=== PATIENT | female | born 1995 ===

== ENCOUNTER 2019-02-17 05:22 | Inpatient (IN) ==
[2019-02-17] MEDS ORDERED: OXYTOCIN 30 UNITS/500 ML BAG IV PRN ×3 (12:32→23:33)
--- NOTE | 2019-02-17 12:39 | History & Physical Report ---
Date of Service February 17, 2019 Assessment & Plan (1) 40 weeks gestation of : Admit to L&D for labor. History of Present Illness Chief Complaint: labor Primary Care Provider: NO PCP 23yo @ 40 6 presented overnight for previous physician in spontaneous labor. She was cynthia regularly, no vaginal bleeding or leaking. + movement. uncomplicated. 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 marital status: Current Living Situation: Spouse Other Information That Helps Us Care for You: No Feels Safe at Home: Yes Safety Concerns: Feels Safe At This Time and Afraid for Self Smoking Status: Never smoker Hx Alcohol Use: No Hx Substance Use: No Review of Systems All systems reviewed & are unremarkable except as noted in HPI & below Physical Exam Physical Exam: Gen: AAOx3 NAD CV: RRR L: CTAB Abd: soft, NTTP, gravid Ext: no edema SVE on arrival per Dr Nowak: /-2 FHT Cat 1 Cobb Q 2-3 Results & Data Vital Signs (Past 12 Hours) Vital Signs Temp Pulse Resp BP 02/17/19 11:07 37.1 C 71 18 125/77 02/17/19 07:20 37.0 C 16 02/17/19 07:14 88 132/89 02/17/19 05:54 36.8 C 100 H 18 117/76 02/17/19 05:34 100 H 117/76
--- NOTE | 2019-02-17 12:50 | Obstetrical Progress Note ---
Date of Service February 17, 2019 Subjective Feeling contractions. FHT Cat 1 Sudley Q 2-5 min SVE 2-3/90/-2 Will start pitocin. Discussed with patient, she is agreeable. OK for epidural when she desires. Results & Data Vital Signs (Past 12 Hours) Vital Signs Temp Pulse Resp BP 02/17/19 11:07 37.1 C 71 18 125/77 02/17/19 07:20 37.0 C 16 02/17/19 07:14 88 132/89 02/17/19 05:54 36.8 C 100 H 18 117/76 02/17/19 05:34 100 H 117/76
[2019-02-17 13:01] LABS: Hematocrit (blood only) 33.6 % (37-47); Hemoglobin 10.9 g/dL (12.0-16.0); Mean Corpuscular Volume 85.7 fL (80-100); Mean Platelet Volume 11.1 fL (7.4-10.4); Platelet Count 143 K/uL (130-400); RDW Coefficient of Variation 14.6 % (11.5-14.5); RDW Standard Deviation 45.5 fL (36.4-46.3); Red Blood Count 3.92 M/uL (4.2-5.4); White Blood Count 11.69 K/uL (4.8-10.8)
[2019-02-17 13:02] LABS: Mean Corpuscular Hgb Conc 32.4 g/dL (32-36)
--- NOTE | 2019-02-17 13:04 | Obstetrical Progress Note ---
Date of Service February 17, 2019 Subjective Rates ctx 8-9/10, does not desire epidural. FHT Cat 1 Pierz Q 2-6 min SVE 6-7/80/-1 Discussed with patient that pitocin would likely help ctx become more regular - she is agreeable. Pit ordered. Results & Data Vital Signs (Past 12 Hours) Vital Signs Temp Pulse Resp BP 02/17/19 11:07 37.1 C 71 18 125/77 02/17/19 07:20 37.0 C 16 02/17/19 07:14 88 132/89 02/17/19 05:54 36.8 C 100 H 18 117/76 02/17/19 05:34 100 H 117/76
[2019-02-17] MEDS: LACTATED RINGER'S 1,000 ML IV PRN ×3 (13:21→21:16)
--- NOTE | 2019-02-17 20:52 | Anesthesiology Consultation ---
Date of Service February 17, 2019 Assessment & Plan (1) Encounter for pre-operative examination: Chart Review Chart Review: Patient NOT seen in Pre Admission Testing and Acceptable Risk for Labor Epidural Consults Requested none ASA ASA2 Proposed Anesthesia Anesthesia Type: Labor Epidural Risk / Benefits Reviewed With: PT / POA / Parent / Guardian, Accepts Plan and Informed Consent Obtained History Height/Weight Weight: 70.307 kg Allergies Allergy/AdvReac Type Severity Reaction Status Date / Time No Known Allergies Allergy Unverified 02/17/19 05:45 Medications Home Medications Medication Instructions Recorded Confirmed Last Taken 1 tab PO DAILY 02/17/19 02/17/19 02/17/19 03:00 Active Medications Generic Name Dose Route Start Last Admin Trade Name Freq PRN Reason Stop Dose Admin Lactated Ringer's 1,000 mls @ 125 mls/hr 02/17/19 12:32 02/17/19 21:16 Lr IV 02/19/19 12:31 999 mls/hr .Q8H PRN Administration L&D Protocol Protocol Oxytocin 30 units in 500 mls @ 7 mls/hr 02/17/19 12:32 02/17/19 19:12 Pitocin IV 02/19/19 12:31 0.42 units/hr .Q24H PRN 7 mls/hr Labor Induction/Augmentation Titration Protocol 0.42 UNITS/HR Social History Smoking Status: Never smoker Hx Alcohol Use: No Hx Substance Use: No Review of Systems Patient denies history of abnormal bleeding or bleeding disorder. Patient denies active use of anticoagulants other than low dose aspirin. Patient denies numbness, tingling or weakness in lower extremities. Physical Exam Vital Signs Last Vital Signs Temp 36.8 C 02/17/19 20:50 Pulse 91 H 02/17/19 21:31 Resp 20 02/17/19 21:24 BP 124/71 02/17/19 21:31 Pulse Ox 100 02/17/19 21:28 ENMT Mouth: no TMJ abnormality and oral opening not small Neck normal visual inspection; neck extension not limited Respiratory normal respiratory effort Auscultation: lungs clear to auscultation bilaterally Cardiovascular Rate/Rhythm: regular rate and regular rhythm Heart Sounds: no murmur Neurologic moves all extremities Psychiatric Orientation: alert and oriented x 3 Testing Laboratory Results 02/17/19 12:51
[2019-02-17] MEDS ORDERED: fentaNYL 2MCG/ML ROPIV 1.25MG/ML 100 ML BAG EPI ONE (21:28)
[2019-02-17] MEDS ORDERED: BUPIVACAINE 0.25% 30 ML VIAL ONE (21:28)
[2019-02-17] MEDS ORDERED: ePHEDrine sulfate 50 MG/ML AMP ONE (21:28)
[2019-02-17] MEDS ORDERED: fentaNYL citrate 100 MCG/2 ML VIAL ONE (21:28)
[2019-02-17] MEDS ORDERED: NALOXONE HCL 0.4 MG/1 ML VIAL/CARP IV PRN (23:03)
[2019-02-17] MEDS ORDERED: fentaNYL 2MCG/ML ROPIV 1.25MG/ML 100 ML BAG EPI PRN (23:03)
[2019-02-17] MEDS ORDERED: NALOXONE HCL 1 MG in SODIUM CHLORIDE 0.9% 1000ML 1,000 ML IV PRN (23:03)
[2019-02-17] MEDS ORDERED: DiphenhydrAMINE HCL 50 MG/ML VIAL IV PRN (23:03)
[2019-02-17] MEDS ORDERED: NALBUPHINE HCL INJ 10 MG/ML AMP IV PRN (23:03)
[2019-02-17] MEDS ORDERED: ONDANSETRON INJ 2 MG/ML 2 ML VIAL IV PRN (23:03)
[2019-02-17] MEDS ORDERED: ePHEDrine sulfate 50 MG/ML AMP IV PRN (23:03)
--- NOTE | 2019-02-17 23:04 | Delivery Summary ---
Vaginal Delivery Summary Date of Service February 17, 2019 Patient admitted by my partner Dr. Nowak for labor assessment she was 6 cm in the morning of her shift change the patient wished to be unmedicated and wished minimal intervention she did progress to 9 cm at that stage we did offer an AROM and she agreed she stayed there at 9 cm for a number of hours and she was offered an epidural and she agreed to this after that she developed a lower station at +2 cm in fluid balance able to push for a short period of time delivering a baby in occiput anterior there was some thin meconium mouth and then nares were suctioned no nuchal cord gentle traction no excessive force live vigorous male infant cord clamped and cut cord gases obtained cord blood obtained placenta removed with gentle traction IV Pitocin started small first- degree tear repaired with 3-0 Vicryl sponge and instrument counts correct estimate of blood loss 150 mL
--- NOTE | 2019-02-17 23:16 | Anesthesia Procedure Note ---
Date of Service February 17, 2019 Anesthesia Post Epidural Note Vital Signs Vital Signs: Temp Pulse Resp BP Pulse Ox 36.9 C 112 H 16 104/67 100 02/17/19 22:25 02/17/19 23:13 02/17/19 23:01 02/17/19 23:01 02/17/19 23:13 Pain Intensity Abdomen: Pain Intensity: 0 Notes Mental Status: alert / awake / arousable and participated in evaluation Nausea / Vomiting: adequately controlled Pain: adequately controlled Airway Patency, RR, SpO2: stable & adequate BP & HR: stable & adequate Hydration State: stable & adequate Neuraxial Anesthesia: was administered and sensory block is resolving Anesthetic Complications: no major complications apparent and Pt Satisfied with anesthetic care Epidural: Removed without complications and With tip intact
[2019-02-17] MEDS ORDERED: HYDROCORTISONE ACETATE 25 MG SUPP PR PRN (23:33)
[2019-02-17] MEDS ORDERED: OXYCODONE/ACETAMINOPHEN 5mg/325mg TAB PO PRN (23:33)
[2019-02-17] MEDS ORDERED: BISACODYL 10 MG SUPP PR PRN (23:33)
[2019-02-17] MEDS ORDERED: DIPHTHERIA/TETANUS/PERTUSSIS 0.5 ML SYR/VIAL IM ONE (23:33)
[2019-02-17] MEDS ORDERED: IBUPROFEN 600 MG TAB PO PRN (23:33)
[2019-02-17] MEDS ORDERED: BENZOCAINE 20% AER SPR 82.5 GM CAN EXT PRN (23:33)
[2019-02-17] MEDS ORDERED: SUPERCREAM 0.870% 15 GM JAR EXT PRN (23:33)
[2019-02-18 00:35] LABS: Base Excess Cord Arterial Bld -7.2 mEq/L (-9-1.8); CO2 Cord Arterial Blood 50 mmHg (39.1-73.5); HCO3 Cord Arterial Blood 21 mmol/L (19.7-28.5); PO2 Cord Arterial Blood 19.7 % (4.1-31.7); pH Cord Arterial Blood 7.23 (7.1-7.38)
[2019-02-18 00:36] LABS: Base Excess Cord Venous Blood -7.3 mEq/L (-7.7-1.9); Cord Venous Blood HCO3 19 mmol/L (18.4-26.8); Cord Venous Blood PCO2 42 mmHg (30.4-57.2); Cord Venous Blood PO2 25 mmHg (14.1-43.3); Cord Venous Blood pH 7.28 (7.20-7.44); Oxygen Sat Cord Arterial Blood < 60.0 % (<60)
[2019-02-18 00:37] LABS: O2 Saturation Cord Venous Bld < 60.0 % (<68)
--- NOTE | 2019-02-18 05:22 | Obstetrical Progress Note ---
Date of Service <Abdon Pavon MD - Last Filed: 02/18/19 07:56> February 18, 2019 Assessment & Plan <Abdon Pavon MD - Last Filed: 02/18/19 07:56> Day #:: 1 ([23 y/o s/p vaginal delivery @ 40+6 complicated by post term] -PPD#1 - GBS negative, Blood Type A+ - Feels well today. Eating well, voiding well, ambulating well. - Pain well controlled. - Routine care - After discharge will have 6 week followup with Lit.) Subjective <Abdon Pavon MD - Last Filed: 02/18/19 07:56> Ambulation: ambulating normally Voiding: no voiding problems Diet Tolerance:: regular diet Lochia:: Moderate (less than a heavy period) Feeding Type:: breast feeding Current Pain Level(1-10): 3 Physical Exam <Abdon Pavon MD - Last Filed: 02/18/19 07:56> OB PE General: Alert, oriented. No acute distress. Cardiac: Regular rate and rhythm, no murmurs/rubs/gallops. Respiratory: Clear to auscultation anterior and posteriorly, no wheezes/rales/rhonchi. No increased work of breathing. Symmetrical chest rise. No respiratory distress. Abdomen: Soft, nontender, nondistended. Bowel sounds present. Uterus: Uterine fundus firm, palpable 1 cm below umbilicus. Lower Extremities: No lower extremity edema or swelling. No deep calf pain. Rodolfo's negative bilaterally. OB ROS Admits headache Denies fever, chills, sweats Denies shortness of breath, difficulty breathing, chest pain, palpitations, chest pressure. Denies breast pain. Results & Data <Abdon Pavon MD - Last Filed: 02/18/19 07:56> Vital Signs (Past 12 Hours) Vital Signs Temp Pulse Resp BP Pulse Ox 02/18/19 01:16 111 H 129/58 L 02/18/19 01:00 37.0 C 116 H 16 116/76 02/18/19 00:45 108 H 115/70 02/18/19 00:30 93 H 16 111/63 02/18/19 00:15 102 H 120/77 02/18/19 00:01 102 H 16 110/67 02/17/19 23:46 96 H 16 117/55 L 02/17/19 23:31 105 H 16 119/64 02/17/19 23:16 94 H 18 114/68 02/17/19 23:13 112 H 100 02/17/19 23:08 113 H 100 02/17/19 23:03 95 H 100 02/17/19 23:01 92 H 16 104/67 02/17/19 22:58 103 H 100 02/17/19 22:53 99 H 100 02/17/19 22:48 87 100 02/17/19 22:45 103 H 85 L 02/17/19 22:43 111 H 100 02/17/19 22:38 75 100 02/17/19 22:35 114 H 109/56 L 02/17/19 22:33 95 H 100 02/17/19 22:28 126 H 100 02/17/19 22:25 36.9 C 18 02/17/19 22:23 73 100 02/17/19 22:18 90 100 02/17/19 22:16 102 H 138/58 L 02/17/19 22:13 101 H 100 02/17/19 22:08 70 100 02/17/19 22:03 73 100 02/17/19 22:02 85 114/67 02/17/19 21:58 81 100 02/17/19 21:57 85 163/65 H 02/17/19 21:53 93 H 100 02/17/19 21:48 95 H 121/74 100 02/17/19 21:43 92 H 100 02/17/19 21:42 71 107/72 02/17/19 21:41 16 02/17/19 21:38 96 H 100 02/17/19 21:36 94 H 16 120/71 02/17/19 21:34 97 H 126/76 02/17/19 21:33 101 H 100 02/17/19 21:31 91 H 124/71 02/17/19 21:28 88 123/67 100 02/17/19 21:25 81 125/89 02/17/19 21:24 98 H 20 145/71 H 02/17/19 21:23 104 H 100 02/17/19 21:19 90 124/73 02/17/19 21:18 95 H 100 02/17/19 21:16 97 H 124/79 02/17/19 21:13 81 100 02/17/19 21:08 92 H 100 02/17/19 21:03 82 100 02/17/19 20:58 96 H 100 02/17/19 20:53 93 H 100 02/17/19 20:51 76 129/74 02/17/19 20:50 36.8 C 20 02/17/19 20:48 89 100 02/17/19 20:43 83 100 02/17/19 20:38 91 H 100 02/17/19 20:33 98 H 100 02/17/19 20:06 75 18 126/74 02/17/19 19:06 37.0 C 86 18 116/72 02/17/19 18:46 93 H 132/77 02/17/19 18:43 88 18 127/76 02/17/19 17:30 36.8 C 18 <Sukhdev Murrieta MD, FACOG - Last Filed: 02/18/19 08:06> Co-Signing Physician Notes Resident Physician Supervision Note: I was present with [Name of resident] during the history and exam. I discussed the case with the resident and agree with the findings and plan as documented in the note. Any exceptions or clarifications are listed here: [None] Documented By: Sukhdev Murrieta MD, FACOG
[2019-02-18] MEDS: ACETAMINOPHEN 325 MG TAB PO PRN (06:52)
[2019-02-18 08:12] LABS: Hematocrit (blood only) 30.5 % (37-47); Mean Corpuscular Hgb Conc 32.8 g/dL (32-36); Mean Corpuscular Volume 86.6 fL (80-100); Mean Platelet Volume 12.6 fL (7.4-10.4); Platelet Count 157 K/uL (130-400); RDW Coefficient of Variation 14.8 % (11.5-14.5); RDW Standard Deviation 45.8 fL (36.4-46.3); Red Blood Count 3.52 M/uL (4.2-5.4); White Blood Count 17.76 K/uL (4.8-10.8)
[2019-02-18] MEDS: DOCUSATE SODIUM 100 MG CAP PO SCH ×2 (08:24→20:15)
[2019-02-18] MEDS: PRENATAL VITAMIN 1 TAB PO SCH (08:24)
[2019-02-18] MEDS ORDERED: NON-FORMULARY MEDICATION (Prenatal 1 TAB) PO SCH (09:00)
[2019-02-18] MEDS ORDERED: BISACODYL 5 MG TABEC PO SCH (20:00)
[2019-02-19] MEDS: ACETAMINOPHEN 325 MG TAB PO PRN ×2 (00:22→19:33)
[2019-02-19 06:59] LABS: Hematocrit (blood only) 31.5 % (37-47)
--- NOTE | 2019-02-19 08:03 | Obstetrical Progress Note ---
Date of Service February 19, 2019 Assessment & Plan (1) Vaginal delivery: PPD#2 doing well. RTO 6w . Discharge instructions discussed. Subjective Ambulation: ambulating normally Voiding: no voiding problems Diet Tolerance:: regular diet Lochia:: Moderate Review of Systems All systems reviewed & are unremarkable except as noted in HPI & below Physical Exam Constitutional WD/WN, vitals as above no acute distress Respiratory normal respiratory effort Cardiovascular Rate/Rhythm: regular rate and regular rhythm Gastrointestinal (Abdomen) Inspection/Auscultation: abdomen normal to inspection; abdomen not distended Percussion/Palpation: abdomen soft Genitourinary OB Exam Abdomen: + fundal height Fundus: + firm; not tender Results & Data Vital Signs (Past 12 Hours) Vital Signs Temp Pulse Resp BP 02/18/19 23:10 36.7 C 90 18 120/78 02/18/19 20:10 36.4 C L 84 18 114/73
[2019-02-19] MEDS: PRENATAL VITAMIN 1 TAB PO SCH (08:19)
[2019-02-19] MEDS: DOCUSATE SODIUM 100 MG CAP PO SCH (08:19)
== END 2019-02-19 20:00 | disposition home or self-care (01) | DRG 807 ==
LOC: OPB 05:22 → 4S1 05:23 → 4S2 02-18 01:30